=== PATIENT | male | born 1980 | race Caucasian/White ===

== ENCOUNTER 2020-02-06 18:28 | Emergency (ER) | payer SELFPAY ==
[~2020-02-06] VITALS: Ht 175.3 cm; Wt 95.3 kg
[2020-02-06] MEDS ORDERED: XANAX (18:44)
[2020-02-06] MEDS ORDERED: ADDERALL (18:44)
[2020-02-06] MEDS ORDERED: LAMICTAL (18:44)
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
--- NOTE | 2020-02-06 19:08 | NUR ---
Received patient from day shift nurse, urine sent to lab at this time Addendum: 02/06/20 at 2010 by BERNARDO urine collected by previous shift nurse
[2020-02-06 20:10] LABS: *AMPHETAMINE, URINE NEGATIVE (NEGATIVE); *BARBITURATE, URINE NEGATIVE (NEGATIVE); *CANNABINOID, URINE POSITIVE (NEGATIVE); *COCCAINE, URINE NEGATIVE (NEGATIVE); *OPIATE, URINE NEGATIVE (NEGATIVE); *PHENCYCLIDINE SCREEN,URINE NEGATIVE (NEGATIVE)
--- NOTE | 2020-02-06 20:11 | NUR ---
MD Sullivan spoke to Naomi James PREFITTER of [facility] to approve Blood draw collection for [place] [employer] officers, blood collected in right wrist, betadine used to cleanse area for blood draw
--- NOTE | 2020-02-06 20:19 | NUR ---
Patient does not wish to proceed with medical care recommended by Dr. Sullivan. Patient given information related to possible complications, up to and including , which could occur as a result of leaving the hospital at this time. Patient verbalizes understanding of risks involved due to leaving against medical advice. Patient has signed AMA form.
[2020-02-06 20:22] VITALS: BP 162/77
== END 2020-02-06 20:30 | disposition left against medical advice (07) ==
LOC: ER 18:28
DX: S06.9X9A Unspecified intracranial injury with loss of consciousness of unspecified duration, initial encounter (principal); R40.2412 Glasgow coma scale score 13-15, at arrival to emergency department; V49.9XXA Car occupant (driver) (passenger) injured in unspecified traffic accident, initial encounter; Y92.411 Interstate highway as the place of occurrence of the external cause; F90.9 Attention-deficit hyperactivity disorder, unspecified type; F41.9 Anxiety disorder, unspecified; Z79.899 Other long term (current) drug therapy
CPT/HCPCS: 36415; 80307; A4663